=== PATIENT | male | born 1950 | race Caucasian/White ===

== ENCOUNTER 2019-11-05 09:26 | Outpatient (CLI) | payer MEDICARE, SELFPAY ==
[2019-11-05 10:05] LABS: Alanine Aminotransferase 16 U/L (4-50); Albumin Level 4.5 g/dL (3.5-5.1); Alkaline Phosphatase 63 U/L (38-126); Aspartate Amino Transferase 23 U/L (17-59); Bilirubin,Total 0.8 mg/dL (0.2-1.3); Blood Urea Nitrogen 15 mg/dL (9-20); Calcium 9.4 mg/dL (8.4-10.2); Carbon Dioxide 27 mmol/L (22-30); Chloride 103 mmol/L (98-107); Cholesterol 138 mg/dL (0-200); Estimated Glomerular Filt Rate > 60; Glucose 88 mg/dL (75-110); HDL Direct 26 mg/dL; Potassium 4.2 mmol/L (3.4-5.0); Sodium 139 mmol/L (137-145); Triglycerides 189 mg/dL (<150)
[2019-11-05 10:28] LABS: LDL Cholesterol Direct 80 mg/dL
[2019-11-05 10:48] LABS: Prostate Specific Antigen 3.5 ng/mL (< OR = 4.0)
== END 2019-11-05 09:27 | disposition home or self-care (01) ==
DX: I10 Essential (primary) hypertension (principal); Z12.5 Encounter for screening for malignant neoplasm of prostate
CPT/HCPCS: 36415; 80053; 80061; 84153; G0103

== ENCOUNTER 2020-08-30 13:02 | Emergency (ER) | payer MEDICARE, SELFPAY ==
[2020-08-30 13:24] VITALS: BP 142/74; PULSE 78; RESP 20; TEMP 36.3; O2SAT 98
--- NOTE | 2020-08-30 13:41 | ED.GENADULT ---
HPI - General Adult General Chief complaint: Upper Respiratory Infection Stated complaint: jaw and throat hurts Source: patient Mode of arrival: ambulatory Limitations: no limitations History of Present Illness HPI narrative: Patient presents for evaluation of pain in the left lateral neck and left TM joint since 0300 yesterday morning. States he woke from sleep with his symptoms. He attributed to laying on his face while sleeping and/or grinding his teeth. He states that he has some intermittent dental pain that has been ongoing for months related to a capped tooth. However, he does not have dental pain at the present time. He has also experienced some sinus problems and feels as though he has middle ear fluid present. Denies any fever, chills, respiratory symptoms, drainage from the ears, tinnitus or hearing loss. He states that he had Covid back in May 2020. He received his first Covid vaccine approximately three weeks ago and is scheduled to have his 2nd vaccine tomorrow. He came in for evaluation today to ensure that there was no contraindication to receiving his 2nd vaccine. He does not smoke. He states his symptoms today are improved from yesterday. No additional complaints or concerns. Related Data Home Medications Medication Instructions Recorded Confirmed losartan 25 mg DAILY 08/30/20 08/30/20 omeprazole 40 mg DAILY 08/30/20 08/30/20 Allergies Allergy/AdvReac Type Severity Reaction Status Date / Time No Known Allergies Allergy Verified 08/30/20 13:44 Review of Systems Review of Systems: Narrative: CONSTITUTIONAL: Denies fever, chills, or sweats. EYES: Denies visual changes, redness, or discharge. ENT: Reports pain in the left TM joint and left lateral neck without sore throat, tinnitus or hearing loss. CARDIOVASCULAR: Denies chest pain, palpitations, or edema. RESPIRATORY: Denies cough or dyspnea. GASTROINTESTINAL: Denies abdominal pain, nausea, vomiting, or diarrhea. GENITOURINARY: Denies dysuria or hematuria. SKIN: Denies rash or itching. MUSCULOSKELETAL: Denies back pain, joint pain, or myalgia. NEUROLOGIC: Denies headache, numbness, dizziness, or weakness. PSYCHIATRIC: Denies anxiety or depression. [facility] Past Medical History Medical History (Updated 08/30/20 @ 13:50 by Taj Victor, DATA LEAD, ) GERD (gastroesophageal reflux disease) Hypertension Ulcerative colitis Surgical History Surgical History H/O colectomy Family History Family History Father Lupus Mother Heart disease Social History Social History Smoking status: Never smoker Alcohol intake: current Alcohol use details: Socially Living arrangements: with family Gender identity (if verbalized by the patient): Male Sexual Orientation (if Verbalized by the Patient): Straight or Heterosexual Spiritual care concerns: No Exam Narrative: Exam Narrative: GENERAL: Well-appearing, well-nourished, and in no acute distress. HEAD: Normocephalic, atraumatic. EYES: PERRLA and EOMI. ENT: Nares clear, no rhinorrhea or epistaxis. Mucous membranes moist. Oropharynx without tonsillar hypertrophy exudate or other lesions. Bilateral middle ear fluid present NECK: Supple. Mild left-sided anterior cervical lymphadenopathy CHEST: Clear to auscultation. No respiratory distress. No wheezes rales or rhonchi HEART: Regular rate and rhythm. No murmur heard. Normal peripheral pulses. ABDOMEN: Soft, nontender, nondistended, normal active bowel sounds. EXTREMITIES: Normal range of motion. No edema. SKIN: Warm, dry, no rash. NEURO: No focal deficits. Alert and oriented x3. PSYCH: Normal mood and affect. Course Course Emergency Course: This is a 7-year-old male who presents with less than 48-hour history of left-sided TM joint pain as well as some
== END 2020-08-30 13:52 | disposition home or self-care (01) ==
PROVIDERS: Emergency Provider Nurse Practitioner; PCP Internal Medicine
DX: R59.1 Generalized enlarged lymph nodes (principal); I10 Essential (primary) hypertension; K21.9 Gastro-esophageal reflux disease without esophagitis
CPT/HCPCS: 87081; 87880; 99213; G0463

== ENCOUNTER 2020-11-06 08:48 | Outpatient (CLI) | payer MEDICARE, SELFPAY ==
[2020-11-06 09:26] LABS: Alanine Aminotransferase 21 U/L (4-50); Albumin Level 4.7 g/dL (3.5-5.1); Alkaline Phosphatase 60 U/L (38-126); Anion Gap 4 mmol/L (8-16); Aspartate Amino Transferase 28 U/L (17-59); Bilirubin,Total 0.9 mg/dL (0.2-1.3); Blood Urea Nitrogen 15 mg/dL (9-20); Calcium 9.7 mg/dL (8.4-10.2); Carbon Dioxide 30 mmol/L (22-30); Chloride 104 mmol/L (98-107); Cholesterol 145 mg/dL (0-200); Estimated Glomerular Filt Rate > 60; Glucose 92 mg/dL (75-110); HDL Direct 30 mg/dL; Potassium 4.5 mmol/L (3.4-5.0); Sodium 138 mmol/L (137-145); Triglycerides 168 mg/dL (<150)
[2020-11-06 09:36] LABS: LDL Cholesterol Direct 82 mg/dL
[2020-11-06 10:18] LABS: Prostate Specific Antigen 1.7 ng/mL (< OR = 4.0)
== END 2020-11-06 08:49 | disposition home or self-care (01) ==
PROVIDERS: PCP Internal Medicine; Visit Provider Internal Medicine
DX: I10 Essential (primary) hypertension (principal); Z12.5 Encounter for screening for malignant neoplasm of prostate
CPT/HCPCS: 36415; 80053; 80061; 84153; G0103

== ENCOUNTER 2021-11-24 06:33 | Outpatient (CLI) | payer MEDICARE, SELFPAY ==
[2021-11-24 08:07] LABS: Alanine Aminotransferase 24 U/L (6-50); Albumin Level 4.5 g/dL (3.5-5.1); Alkaline Phosphatase 63 U/L (38-126); Anion Gap 4 mmol/L (8-16); Aspartate Amino Transferase 26 U/L (17-59); Bilirubin,Total 0.9 mg/dL (0.2-1.3); Blood Urea Nitrogen 15 mg/dL (9-20); Calcium 9.2 mg/dL (8.4-10.2); Carbon Dioxide 32 mmol/L (22-30); Chloride 100 mmol/L (98-107); Cholesterol 136 mg/dL (0-200); Estimated Glomerular Filt Rate > 60; Glucose 89 mg/dL (65-110); HDL Direct 26 mg/dL; Potassium 4.5 mmol/L (3.4-5.0); Sodium 136 mmol/L (137-145); Triglycerides 174 mg/dL (<150)
[2021-11-24 08:19] LABS: LDL Cholesterol Direct 74 mg/dL
[2021-11-24 08:32] LABS: Prostate Specific Antigen 1.7 ng/mL (< OR = 4.0)
== END 2021-11-24 06:34 | disposition home or self-care (01) ==
LOC: ANHLAB 06:37
PROVIDERS: PCP Internal Medicine; Visit Provider Internal Medicine
DX: I10 Essential (primary) hypertension (principal); Z12.5 Encounter for screening for malignant neoplasm of prostate
CPT/HCPCS: 36415; 80053; 80061; 84153; G0103

== ENCOUNTER 2022-02-15 07:01 | Outpatient (CLI) | payer MEDICARE, SELFPAY | END 2022-02-15 07:02 | disposition home or self-care (01) | LOC: ANHLAB 07:05 | PROVIDERS: PCP Internal Medicine; Visit Provider Internal Medicine | DX: M79.10 Myalgia, unspecified site (principal); K90.89 Other intestinal malabsorption | CPT/HCPCS: 36415; 82306; 82607; 83735 ==

== ENCOUNTER 2024-06-07 07:03 | Outpatient (CLI) | payer MEDICARE, SELFPAY ==
[2024-06-07 07:58] LABS: Basophils Absolute Auto 0.1 K/mm3 (0.0-0.1); Eosinophils Percent Auto 0.5 % (0-4.4); Hematocrit 46.1 % (42.0-52.0); Hemoglobin 15.1 g/dL (14.0-18.0); Immature Granulocyte Absolute 0.03 K/mm3 (0.00-0.031); Immature Granulocyte Percent A 0.5 % (0-0.5); Lymphocytes Absolute Auto 1.88 K/mm3 (0.9-3.2); Lymphocytes Percent Auto 31.6 % (18.3-44.2); Mean Corpuscular HGB Conc 32.8 g/dl (32-36); Mean Corpuscular Hemoglobin 31.1 pg (26-34); Mean Corpuscular Volume 94.9 fl (80-100); Mean Platelet Volume 9.1 fl (7.4-10.4); Monocytes Absolute Auto 0.6 K/mm3 (0.1-0.6); Monocytes Percent Auto 10.6 % (2.6-8.5); Neutrophils Absolute Auto 3.3 K/mm3 (1.3-6.7); Neutrophils Percent Auto 55.8 % (45.5-73.1); Platelet Count Result 234 k/mm3 (150-375); Red Blood Count 4.86 M/mm3 (4.6-6.20); Red Cell Distribution Width 12.5 % (11.5-14.5)
[2024-06-07 08:07] LABS: Alanine Aminotransferase 31 U/L (6-50); Albumin Level 4.4 g/dL (3.5-5.1); Alkaline Phosphatase 59 U/L (38-126); Anion Gap 8 mmol/L (4-12); Aspartate Amino Transferase 28 U/L (17-59); Bilirubin,Total 1.1 mg/dL (0.2-1.3); Blood Urea Nitrogen 19 mg/dL (9-20); Calcium 9.4 mg/dL (8.4-10.2); Carbon Dioxide 28 mmol/L (22-30); Chloride 103 mmol/L (98-107); Estimated Glomerular Filt Rate > 60; Glucose 95 mg/dL (65-110); Potassium 4.3 mmol/L (3.4-5.0); Sodium 139 mmol/L (137-145)
== END 2024-06-07 07:04 | disposition home or self-care (01) ==
PROVIDERS: PCP Internal Medicine; Visit Provider Internal Medicine
DX: R79.9 Abnormal finding of blood chemistry, unspecified (principal)
CPT/HCPCS: 36415; 80053; 85025

== ENCOUNTER 2024-09-09 11:47 | Outpatient (CLI) | payer MEDICARE, SELFPAY ==
--- OUTSIDE RECORDS SUMMARY | 2024-09-09 13:52 | XMS_ITS | Patient Health Summary ---
Author Organization [facility] [employer] Address [address] [place] [address] Care Team Providers Care Manager Bakery Name Role Phone Unavailable Primary Care Provider Unavailabl e Note from [facility],non-owned Affiliates and Associated Physician Practices is amultiple site organization consisting of ambulatory clinics and hospital sitesin [place], [place], [place] and [place]. This disclosure is being madepursuant to the Care Everywhere program and may not contain all information available regarding this patient. Last updated 18.[facility] Allergies No known active allergies Medications * Be aware that medications may not be up to date on this document. Alwaysverify current medications with the patient. * Multiple Vitamins-Minerals (VITRUM SENIOR) TABS Take 1 tablet by mouth once daily * vitamin D3 (CHOLECALCIFEROL) (25 MCG) 1000 UNIT capsule Take 1,000 Units by mouth once daily * Cyanocobalamin 1000 MCG Take 100 mcg by mouth once daily * Famotidine-Ca Carb-Mag Hydrox 10-800-165 MG Take 1 tablet by mouth once daily * losartan (COZAAR) 25 MG tablet(Started 11/02/2020) Take 25 mg by mouth 2 times daily * omeprazole (PRILOSEC) 40 MG capsule(Started 08/18/2021) Take 40 mg by mouth 2 times daily * RABEprazole EC (ACIPHEX) 20 MG tablet(Started 09/15/2021) Take 20 mg by mouth 2 times daily Social History Tobacco Use Types Packs/Day Years Used Date Smoking Tobacco: Never Smokeless Tobacco: Never Alcohol Use Standard Drinks/Week Comments Not Currently 2 (1 standard drink = 0.6 oz pur e alcohol) Sex and Gender Information Value Date Recorded Sex Assigned at Not on file Gender Identity Not on file Sexual Orientation Not on file Last Filed Vital Signs Vital Sign Reading Time Taken Comments Blood Pressure - - Pulse - - Temperature - - Respiratory Rate - - Oxygen Saturation - - Inhaled Oxygen Concentration - - Weight 72.6 kg (160 lb) 10/04/2021 8:03 AM CDT Height 168.9 cm (5' 6.5 ) 10/04/2021 8:03 AM CDT Body Mass Index 25.44 10/04/2021 8:03 AM CDT Procedures * DERMATOPATHOLOGY(Performed 04/20/2022) Performed for Neoplasm of uncertain behavior of skin * ESOPHAGUS/GASTROESOPHAGEAL REFLUX TEST(Performed 10/04/2021) Performed for Gastroesophageal reflux disease, unspecified whether esophagitis present * GASTRIC MOTILITY STUDY(Performed 10/04/2021) Performed for Gastroesophageal reflux disease, unspecified whether esophagitis present * DERMATOPATHOLOGY(Performed 08/02/2017) Results * DERMATOPATHOLOGY (04/20/2022 12:00 AM CDT) Only the most recent of2 resultswithin the time period is included. Case Report Dermatopathology Report Case: [id number] Authorizing Provider: Ai Phelan, Collected: 04/20/2022 12:00 AM PRODUCT MARKETING CONSULTANT-BASEBALL PLAYER Ordering Location: [facility] DermPath Lab Received: 04/21/2022 02:01 PM Pathologist: Riri Ozuna MD Specimen: Skin, left lateral neck 2 4:25 PM CDT DERMATOPATHOLOGY LABORATORY Final Diagnosis Specimen A. SKIN, left lateral neck: HYPERPLASTIC (HYPERTROPHIC) ACTINIC KERATOSIS, ERODED (L57.0) 2 4:25 PM CDT DERMATOPATHOLOGY LABORATORY Clinical History Actinic Keratosis vs. Squamous Cell Carcinoma 2 4:25 PM CDT DERMATOPATHOLOGY LABORATORY Gross Description Specimen A: Received is one formalin filled container labeled with the patient's name and designated left lateral neck. The specimen consists of a shave biopsy measuring [id number]. Jar 0. 2 4:25 PM CDT DERMATOPATHOLOGY LABORATORY Microscopic Description Specimen A. SKIN, left lateral neck: There is hyperkeratosis alternating with parakeratosis. The epidermis is focally eroded. There is epidermal hyperplasia with disorderly maturation of keratinocytes with nuclear pleomorphism confined to the lower half of the epidermis. 2 4:25 PM CDT DERMATOPATHOLOGY LABORATORY Disclaimer An external and internal positive and negative controls are appropriate for the histochemical, immunohistochemical and immunofluorescence stain(s) in this case (if any), except where stated explicitly. The performance characteristics of the stain(s) cited in this report were developed and its performance characteristic determined by the Dermatopathology Laboratory at [facility], directed by Dr. Waldemar Garner. These tests need not be, and therefore are not, approved by the [place] Food and Drug Administration. The tests are used for clinical purposes. Billing Codes Specimen Charges Stain Charges 60398 1 2 4:25 PM CDT DERMATOPATHOLOGY LABORATORY Embedded Images 2 4:25 PM CDT DERMATOPATHOLOGY LABORATORY Pathology/Cytolog y TISSUE SPECIMEN FROM SKIN / Unknown 04/20/2022 04/21/2022 2:01 PM CDT Ai Camargo APRN-BASEBALL PLAYER LAB - PATH OLOGY/CYTOLOGY ORDERABLES DERMATOPATHOLOGY LABORATORY [facility] - Department of Dermatology [address], [address] [phone]
--- OUTSIDE RECORDS SUMMARY | 2024-09-09 13:52 | XMS_ITS | Encounter Summary ---
Author Organization [facility] Address 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 HISTORY: HISTORY: 401.1-HYPERTENSION ESSENTIAL BENIGN The patient denies chest pain, shortness of breath, dyspnea on exertion, pedal edema, or headache. The blood pressure readings taken outside the office since the last visit have been in the target range. 556.9-ULCERATIVE COLITIS stable PHYSICAL EXAMINATION: CONSTITUTIONAL: GENERAL APPEARANCE: Healthy appearing patient in no distress. NECK/THYROID: Trachea midline. No thyroid enlargement, tenderness, or mass. No supraclavicular or cervical adenopathy. RESPIRATORY: Clear to auscultation and percussion. Normal respiratory effort. CARDIOVASCULAR: CARDIAC: Regular rhythm. No murmurs, rubs, or gallops. ARTERIAL: No aortic bruits. EDEMA/VARICOSITIES OF EXTREMITIES: No edema or varicosities. GASTROINTESTINAL: ABDOMEN: Soft, non-tender, without masses. Bowel sounds active. LIVER/SPLEEN/KIDNEY: No hepatosplenomegaly, tenderness or nodularity. Kidneys not palpable. ASSESSMENT/PLAN: 272.4-HYPERLIPIDEMIA trig discussed diet and ex 401.1-HYPERTENSION ESSENTIAL BENIGN cont med, pt will cont home monitor 556.9-ULCERATIVE COLITIS stable, discussed REPEAT VITAL SIGNS: BLOOD PRESSURE: 140/70. Right Arm Sitting PREVENTIVE COUNSELING The patient was counseled regarding diet, regular sustained exercise for at least 30 minutes 3-4 times per week. RETURN VISIT : Patient instructed to return in 6 months. Electronically Signed by: Khang Foster MD on Monday, January 01, 2007 documented in this encounter Plan of Treatment Not on file documented as of this encounter Visit Diagnoses Not on filedocumented in this encounter Care Teams Medical Device Sales Consultant Relationship Specialty Start Date End Date Ish Gonzalez MD [address] [place] [address] PCP - General Internal Medicine 08/02/21 documented as of this encounter
--- OUTSIDE RECORDS SUMMARY | 2024-09-09 13:52 | XMS_ITS | Encounter Summary ---
Author Organization [facility] Address [address] [place] [address] Care Team Providers Care Environmental Services Associate Name Role Phone Ish Gonzalez MD Primary Care Provider [phone] Encounter Details Date Type Department Care Team (Late st Contact Info) Description 05/11/2006 Outpatient [facility] Internal Medicine [address] [address] Khang Foster MD [address] [place] [phone] Social History Tobacco Use Types Packs/Day Years Used Date Smoking Tobacco: Never Assessed Sex and Gender Information Value Date Recorded Sex Assigned at Not on file Legal Sex Male 4:36 AM DRY WALL SPRAYER Gender Identity Not on file Sexual Orientation Not on file documented as of this encounter Last Filed Vital Signs Vital Sign Reading Time Taken Comments Blood Pressure 120/70 05/11/2006 4:30 PM DRY WALL SPRAYER Pulse - - Temperature - - Respiratory Rate - - Oxygen Saturation - - Inhaled Oxygen Concentration - - Weight 70.3 kg (155 lb) 05/11/2006 4:30 PM DRY WALL SPRAYER Height - - Body Mass Index 22.89 08/31/2004 9:45 AM DRY WALL SPRAYER documented in this encounter Plan of Treatment Not on file documented as of this encounter Visit Diagnoses Not on filedocumented in this encounter Care Teams Environmental Services Associate Relationship Specialty Start Date End Date Ish Gonzalez MD [address] [place] [address] PCP - General Internal Medicine 08/02/21 documented as of this encounter
--- OUTSIDE RECORDS SUMMARY | 2024-09-09 13:52 | XMS_ITS | Encounter Summary ---
Author Organization [facility] Address 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 HISTORY: HISTORY: 272.4-HYPERLIPIDEMIA The patient is somewhat compliant with the low saturated fat diet. 401.1-HYPERTENSION ESSENTIAL BENIGN The blood pressure readings taken outside the office since the last visit are as follows: the systolic range has been 120's. The diastolic range has been 80's. pulse 80's 556.9-ULCERATIVE COLITIS stable PHYSICAL EXAMINATION: CONSTITUTIONAL: GENERAL [...] or nodularity. Kidneys not palpable. ASSESSMENT/PLAN: 272.4-HYPERLIPIDEMIA discussed, recheck 401.1-HYPERTENSION ESSENTIAL BENIGN contmed, enc exercise 556.9-ULCERATIVE COLITIS [facility] LAB ORDERS: 3 mo Order number: [id number] Test Ordered: COMPREHENSIVE METABOLIC PANEL W/ GLOMERULAR FILTRATION RATE, ESTIMATED (EGFR) 34577 Order number: [id number] Test Ordered: LIPID PANEL 7600 Order number: [id number] Test Ordered: VITAMIN B12 927 RETURN VISIT : Patient instructed to return in 3 months. Electronically Signed by: Khang Foster MD on Monday, September 04, 2006 documented in this encounter Plan of Treatment Not on file documented as of this encounter Visit Diagnoses Not on filedocumented in this encounter Care Teams Floor Layer Helper Relationship Specialty Start Date End Date Ish Gonzalez MD [address] [place] [address] PCP - General Internal Medicine 08/02/21 documented as of this encounter
--- OUTSIDE RECORDS SUMMARY | 2024-09-09 13:52 | XMS_ITS | Encounter Summary ---
Author Organization [facility] Address [address] [place] [address] Care Team Providers Care Learning And Development Analyst Name Role Phone Ish Gonzalez MD Primary Care Provider [phone] Encounter Details Date Type Department Care Team (Late st Contact Info) Description 07/16/2007 Orders Only [facility] Internal Medicine [address] [address] Khang Foster MD [address] [place] [phone] Social History Tobacco Use Types Packs/Day Years Used Date Smoking Tobacco: Never Assessed Sex and Gender Information Value Date Recorded Sex Assigned at Not on file Legal Sex Male 4:36 AM REGISTERED NURSE FLOAT POOL Gender Identity Not on file Sexual Orientation Not on file documented as of this encounter Progress Notes * Khang Foster MD - 11/14/2007 6:37 PM CDT WEIGHT: 166lbs BLOOD PRESSURE: 132/82 Right Arm Sitting NURSE NAME: Thierry Lewis N TOBACCO USE Patient does not currently use tobacco. CHIEF COMPLAINT Patient here for follow up hypertension, hyperlipidemia. HISTORY: kwan med bp fluctuates, tries to watch diet, lab reviewed SOCIAL HISTORY: TOBACCO USE: Has no significant smoking history. DISCUSSED SMOKING: neg. PHYSICAL EXAMINATION: CONSTITUTIONAL: GENERAL APPEARANCE: Healthy appearing [...] or nodularity. Kidneys not palpable. ASSESSMENT/PLAN: 272.4-HYPERLIPIDEMIA enc diet recheck lab 401.1-HYPERTENSION ESSENTIAL BENIGN con tmed LAB ORDERS: 6 mo Order number: [id number] Test Ordered: CBC W/ DIFFERENTIAL 3150 Order number: [id number] Test Ordered: COMPREHENSIVE METABOLIC PANEL & GFR 1112 Order number: [id number] Test Ordered: LIPID PANEL 1078 Order number: [id number] Test Ordered: PSA, TOTAL 1002 Order number: [id number] Test Ordered: TSH 1720 Order number: [id number] Test Ordered: VITAMIN B12 LEVEL 1719 556.9-ULCERATIVE COLITIS stable, recheck b 12 REPEAT VITAL SIGNS: BLOOD PRESSURE: 120/70. Right Arm Sitting Patient Education: The patient was allowed to ask questions to stated satisfaction. Risks, benefits, and possible side effects of medication(s) were reviewed with the patient. RETURN VISIT : Patient instructed to return in 6 months. Electronically Signed by: Khang Foster MD on Monday, July 16, 2007 documented in this encounter Plan of Treatment Not on file documented as of this encounter Visit Diagnoses Not on filedocumented in this encounter Care Teams Learning And Development Analyst Relationship Specialty Start Date End Date Ish Gonzalez MD [address] [place] [address] PCP - General Internal Medicine 08/02/21 documented as of this encounter
--- OUTSIDE RECORDS SUMMARY | 2024-09-09 13:52 | XMS_ITS | Encounter Summary ---
Author Organization [facility] Address [address] [place] [address] Care Team Providers Care Engine Designer Name Role Phone Ish Gonzalez MD Primary Care Provider [phone] Encounter Details Date Type Department Care Team (Late st Contact Info) Description 02/16/2006 Outpatient [facility] Internal Medicine [address] [address] Khang Foster MD [address] [place] [phone] Social History Tobacco Use Types Packs/Day Years Used Date Smoking Tobacco: Never Assessed Sex and Gender Information Value Date Recorded Sex Assigned at Not on file Legal Sex Male 4:36 AM PARKING ANALYST Gender Identity Not on file Sexual Orientation Not on file documented as of this encounter Last Filed Vital Signs Vital Sign Reading Time Taken Comments Blood Pressure 140/98 02/16/2006 4:30 PM CDT Pulse - - Temperature - - Respiratory Rate - - Oxygen Saturation - - Inhaled Oxygen Concentration - - Weight 72.1 kg (159 lb) 02/16/2006 4:30 PM CDT Height - - Body Mass Index 23.48 08/31/2004 9:45 AM PARKING ANALYST documented in this encounter Plan of Treatment Not on file documented as of this encounter Visit Diagnoses Not on filedocumented in this encounter Care Teams Engine Designer Relationship Specialty Start Date End Date Ish Gonzalez [place] [place] [phone] PCP - General Internal Medicine 08/02/21 documented as of this encounter
--- OUTSIDE RECORDS SUMMARY | 2024-09-09 13:52 | XMS_ITS | Encounter Summary ---
Author Organization [facility] Address [address] [place] [address] Care Team Providers Care Pi/Senior Research Associate Name Role Phone Ish Gonzalez MD Primary Care Provider [phone] Encounter Details Date Type Department Care Team (Late st Contact Info) Description 07/16/2007 Outpatient [facility] Internal Medicine [address] [address] Khang Foster MD [address] [place] [phone] Social History Tobacco Use Types Packs/Day Years Used Date Smoking Tobacco: Never Assessed Sex and Gender Information Value Date Recorded Sex Assigned at Not on file Legal Sex Male 4:36 AM APPLIED BEHAVIOR SCIENCE SPECIALIST Gender Identity Not on file Sexual Orientation Not on file documented as of this encounter Last Filed Vital Signs Vital Sign Reading Time Taken Comments Blood Pressure 120/70 07/16/2007 4:00 PM APPLIED BEHAVIOR SCIENCE SPECIALIST Pulse - - Temperature - - Respiratory Rate - - Oxygen Saturation - - Inhaled Oxygen Concentration - - Weight 75.3 kg (166 lb) 07/16/2007 4:00 PM APPLIED BEHAVIOR SCIENCE SPECIALIST Height - - Body Mass Index 24.51 08/31/2004 9:45 AM APPLIED BEHAVIOR SCIENCE SPECIALIST documented in this encounter Plan of Treatment Not on file documented as of this encounter Visit Diagnoses Not on filedocumented in this encounter Care Teams Pi/Senior Research Associate Relationship Specialty Start Date End Date Ish Gonzalez MD [address] [place] [address] PCP - General Internal Medicine 08/02/21 documented as of this encounter
--- OUTSIDE RECORDS SUMMARY | 2024-09-09 13:52 | XMS_ITS | Encounter Summary ---
Author Organization [facility] Address 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 Gender Identity Not on file Sexual Orientation Not on file documented as of this encounter Last Filed Vital Signs Vital Sign Reading Time Taken Comments Blood Pressure 140/70 01/01/2007 4:15 PM CDT Pulse - - Temperature - - Respiratory Rate - - Oxygen Saturation - - Inhaled Oxygen Concentration - - Weight 73.5 kg (162 lb) 01/01/2007 4:15 PM CDT Height - - Body Mass Index 23.92 08/31/2004 9:45 AM LOG MARKER documented in this encounter Plan of Treatment Not on file documented as of this encounter Visit Diagnoses Not on filedocumented in this encounter Care Teams Occupational Ther Relationship Specialty Start Date End Date Ish Gonzalez [place] [address] [place] [address] PCP - General Internal Medicine 08/02/21 documented as of this encounter
--- OUTSIDE RECORDS SUMMARY | 2024-09-09 13:52 | XMS_ITS | Clinical Summary ---
Author Organization [facility] Address [address] [place] [address] Phone Care Team Providers Care Histology Specialist Name Role Phone Ish Gonzalez MD Primary Care Provider [phone] Bob Ji MD Unavailable [phone] Ever Matias DO Unavailable [phone] Medications famotidine (PEPCID) 10 MG Tablet Take 10 mg by mouth. Active telmisartan (MICARDIS) 40 MG Tablet Take 1 Tablet by mouth daily. 90 Tablet 3 11/29/2023 Active omeprazole (PriLOSEC) 20 MG CAPSULE DELAYED RELEASE Take 20 mg by mouth in the morning and at bedtime. Active Multivitamin-Mi nerals (multiple vitamin with minerals) Tablet Take 1 Tablet by mouth daily. Active [place] 3 1200 MG Capsule Take by mouth. Active Active Problems Problem Noted Date Diagnosed Date Zuñiga's esophagus with dysplasia 11/18/2021 Essential hypertension, benign 11/02/2020 Incisional hernia, without obstruction or gangre ne 09/22/2016 H/O ulcerative colitis 02/05/2016 H/O total colectomy 02/05/2016 Gastroesophageal reflux disease 10/27/2015 Hiatal hernia 10/27/2015 Resolved Problems Problem Noted Date Diagnosed Date Resolved Date Non-recurrent bilateral ingu inal hernia without obstruction or gangrene 09/22/2016 11/19/19 22 Small bowel obstruction due to adhesions 02/02/2016 11/02/2020 Encounters Date Type Department Care Team Description 08/30/2024 Telephone [facility] - [place] [address] [place] [address] Ish Gonzalez MD 07/04/2024 Patient Outreach [facility] [address] [place] [address] Elicia Shore Care Management from Last 3 Months Immunizations Immunization Administration Dates Next Due Covid-19, Mrna, Lnp-s, Pf, 3 0 Mcg/0.3 Ml Dose (Pfizer) 04/06/2021 Covid-19, Mrna, Lnp-s, Pf, 3 0 Mcg/0.3 Ml Dose, Andrés-sucrose (Scivantage medley top) 10/18/2021 DTAP VACCINE 01/14/2016 Influenza Vaccine 05/09/2019 Influenza Vaccine greater than 3 yrs 04/07/2015 Influenza, High-dose, Quadrivalent 03/11/2021,,03/03/2020 Influenza, Injectable, Quadrivalent 1950 Influenza, Quadrivalent, Adjuvanted 04/26/2023,1 Influenza, Seasonal, Injecta ble, Undefined 04/16/2014,03/18/2013,05/01/2012,05/03,04/02/2010,05/03/2008,06/02/2003 Influenza, Trivalent, Adjuvanted, PF 03/06/2024, 04/17/2018,04/16/2018 Influenza, high-dose, trivalent, PF 09/0 07/2019,03/03/2020,05/09/2019,05/05 Pneumococcal Vaccine - 13 Valent 11/04/2015 Pneumococcal Vaccine Adult - 23 Valent Pneumococcal conjugate PCV20 , polysaccharide [id number] conjugate, adjuvant, PF 11/29/2023 RSV, Recombinant, Protein Santana bunit Rsvpref, Adjuvant Recon (Arexvy) 05/11/2023 TD VACCINE 02/01/2000 TDAP Vaccine 01/14/2016,05/07/2012 Tetanus Vaccine 02/01/2000 Zoster Vaccine Recombinant 02/05/2019,11/08/2018 ,11/01/2018 Zoster Vaccine, live 01/17/2014,12/31/2013 Family History Medical History Relation Name Comments Lupus Father Rheumatoid Arthritis Father Cancer Mother skin Heart Disease Mother Hypertension Mother Heart Disease Sister Hypertension Sister Relation Name Status Comments Father Mother Sister Alive Social History Tobacco Use Types Packs/Day Years Used Date Smoking Tobacco: Never Passive Smoke Exposure: Never Smokeless Tobacco: Never Tobacco Cessation:Counseling Given: Not Answered Alcohol Use Standard Drinks/Week Comments Yes 0 (1 standard drink = 0.6 oz pur e alcohol) occasional C Utilities Answer Date Recorded In the past 12 months has th e electric, gas, oil, or water company threatened to shut off services in your home? No 03/06/2024 Social Connection and Isolation Panel [NHANES] A nswer Date Recorded In a typical week, how many times do you talk on the phone with family, friends, or neighbors? Twice a week 03/06/2024 How often do you get together with friends or re latives? Twice a week 03/06/2024 How often do you attend episcopalian or congregational serv ices? Never 03/06/2024 Do you belong to any clubs o r organizations such as episcopalian groups, unions, fraternal or athletic groups, or school groups? No 03/06/2024 How often do you attend meet ings of the clubs or organizations you belong to? Never 03/06/2024 Are you , , di vorced, , never , or living with a partner? 03/06/2024 AUDIT-C Answer Date Recorded Q1: How often do you have a drink containing alc ohol? 2-4 times a month 03/06/2024 Q2: How many drinks containi ng alcohol do you have on a typical day when you are drinking? 1 or 2 03/06/2024 Q3: How often do you have si x or more drinks on one occasion? Never 03/06/2024 Overall Financial Resource Strain (CARDIA) Answe r Date Recorded How hard is it for you to pa y for the very basics like food, housing, medical care, and heating? Not hard at all 03/06/2024 PHQ-2 Answer Date Recorded Total Score - Questions 1-9 0 05/2 03/2024 [facility] - Occupational Stress Questionnaire Answer Date Recorded Do you feel stress - tense, restless, nervous, or anxious, or unable to sleep at night because your mind is troubled all the time - these days? Only a little 03/06/2024 Exercise Vital Sign Answer Date Recorde d On average, how many days pe r week do you engage in moderate to strenuous exercise (like a brisk walk)? 3 days 03/06/2024 On average, how many minutes do you engage in exercise at this level? 40 min 03/06/2024 Hunger Vital Sign Answer Date Recorded Within the past 12 months, y ou worried that your food would run out before you got the money to buy more. Never true 03/06/20 24 Within the past 12 months, t he food you bought just didn't last and you didn't have money to get more. Never true 03/06/2024 PRAPARE - Transportation Answer Date Re corded In the past 12 months, has l ack of transportation kept you from medical appointments or from getting medications? No 10/2023 In the past 12 months, has l ack of transportation kept you from meetings, work, or from getting things needed for daily living? No 03/06/2024 Housing Stability Vital Sign Answer Reg e Recorded In the last 12 months, was t here a time when you were not able to pay the mortgage or rent on time? No 11/29/2023 Number of Places Lived in the Last Year Not on f ile 11/29/2023 Unstable Housing in the Last Year Not on file 11/29/2023 Education Answer Date Recorded What is the highest level of school you have completed or the highest degree you have received? 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 Not on file Not on file Not on file Last Filed Vital Signs Vital Sign Reading Time Taken Comments Blood Pressure 118/62 03/06/2024 8:31 AM CDT Pulse 67 03/06/2024 8:31 AM CDT Temperature 36.5 C (97.7 F) 03/06/2024 8:31 AM CDT Respiratory Rate 12 03/06/2024 8:31 AM CDT Oxygen Saturation 95% 03/06/2024 8:31 AM CDT Inhaled Oxygen Concentration - - Weight 77 kg (169 lb 12.8 oz) 03/06/2024 8:31 AM CDT Height 170.2 cm (5' 7 ) 03/06/2024 8:31 AM CDT Body Mass Index 26.59 03/06/2024 8:31 AM CDT Plan of Treatment Upcoming Encounters Date Type Department Care Team (Late st Contact Info) Description 12/04/2024 8:30 AM CDT Office Visit [facility] [address] [place] [address] Ish Gonzalez MD [address] [place] [address] Health Maintenance Due Date Last Done Comments Hepatitis C Virus (HCV) Screening 1950 Colonoscopy 1995 Cologuard 2000 Immunochemical Fecal Occult Blood 2000 SARS-COV-2 Immunization ( season) 2024 03/22/2023, 04/18/2022, 10/18/2021, Additional history exists DTaP/Tdap/Td Immunization Discontinued 2015, 01/14/2016, 05/07/2012, Additional history exists Zoster Immunization Completed 02/05/2019, 11/08/2018, 11/01/2018, Additional history exists Respiratory Syncytial Virus (RSV) Immunization (Adult) Completed 05/11/2023 PSA Discussion Discontinued 11/29/2023, 11/01, 11/24/2021, Additional history exists Pneumococcal Immunization (50+ years) Completed 11/29/2023, 11/02/2020, 05/17/2016, Additional history exists Pneumococcal Immunization Combined Discontinued 11/29/2023, 11/02/2020, 05/17/2016, Additional history exists Influenza Immunization Completed 4, 04/26/2023, 04/06/2022, Additional history exists Colorectal Cancer Screening Discontinued Hepatitis B Immunization Aged Out No longer eligible based on patient's age to complete this topic Meningococcal Immunization (ACWY) Aged Out No longer eligible based on patient's age to complete this topic Rotavirus Immunization Aged Out No lo nger eligible based on patient's age to complete this topic Procedures Procedure Name Priority Date/Time Associated Diagnosis Comments PSA SCREEN Routine 11/29/2023 9:58 AM CDT Screening for prostate cancer from Last 3 Months or Most Recently Relevant to Health Maintenance Results * PSA SCREEN (11/29/2023 9:58 AM CDT) PSA SCREEN, TOTAL 1.90 <4.00 ng/mL 11/29/2023 12:[address] [facility] Blood Venipuncture / Unknown 11/29/2023 9:58 AM CDT 11/29/2023 11:19 AM CDT [address] [facility] - 11/29/2023 12:10 PM CDT The ALINITY Total PSA assay is a Chemiluminescent Microparticle Immunoassay (CMIA) for the quantitative determination of total PSA (both free PSA and PSA complexed to [id number]) in human serum. Total PSA values obtained with different assay methods, including Turpin PSA assays, cannot be used interchangeably. Ish Gonzalez MD CHEMISTRY ORDERABLES Final Result [facility] [address] [place] [address] from Last 3 Months or Most Recently Relevant to Health Maintenance Insurance MEDICARE COMMERCIAL GENERIC Advance Directives * Full Code (Latest Code Status on File) Date Activated Date Inactivated Comments 02/01/2016 2:23 PM 02/07/2016 5:25 PM CPR-Full Treat ment: FULL ARREST: Attempt Resuscitation/CPR wit intubation and mechanical ventilation. PRE-ARREST: Use entire range of life support measures to stabilize the patient. Care Teams Histology Specialist Relationship Specialty Start Date End Date Ish Gonzalez MD [address] [place] [address] PCP - General Internal Medicine 10/08/15 Bob Ji MD [address] [place] [address] General Surgery 02/09/16 Ever Matias DO [address] [place] [address] Gastroenterology 02/10/16
--- OUTSIDE RECORDS SUMMARY | 2024-09-09 13:52 | XMS_ITS | Encounter Summary ---
Author Organization [facility] Address [address] [place] [address] Care Team Providers Care Clinic Supervisor Name Role Phone Ish Gonzalez MD Primary Care Provider [phone] Encounter Details Date Type Department Care Team (Late st Contact Info) Description 11/17/2005 Outpatient [facility] Internal Medicine [address] [address] Khang Foster MD [address] [place] [phone] Social History Tobacco Use Types Packs/Day Years Used Date Smoking Tobacco: Never Assessed Sex and Gender Information Value Date Recorded Sex Assigned at Not on file Legal Sex Male 4:36 AM LABOR MEDIATOR Gender Identity Not on file Sexual Orientation Not on file documented as of this encounter Last Filed Vital Signs Vital Sign Reading Time Taken Comments Blood Pressure 140/92 11/17/2005 4:30 PM CDT Pulse - - Temperature - - Respiratory Rate - - Oxygen Saturation - - Inhaled Oxygen Concentration - - Weight 71.2 kg (157 lb) 11/17/2005 4:30 PM CDT Height - - Body Mass Index 23.18 08/31/2004 9:45 AM LABOR MEDIATOR documented in this encounter Plan of Treatment Not on file documented as of this encounter Visit Diagnoses Not on filedocumented in this encounter Care Teams Clinic Supervisor Relationship Specialty Start Date End Date Ish Gonzalez [place] [place] [address] PCP - General Internal Medicine 08/02/21 documented as of this encounter
--- OUTSIDE RECORDS SUMMARY | 2024-09-09 13:52 | XMS_ITS | Encounter Summary ---
Author Organization [facility] Address [address] [place] [address] Care Team Providers Care Financial Dealers Name Role Phone Ish Gonzalez MD Primary Care Provider [phone] Encounter Details Date Type Department Care Team (Latest Contact Info) Description 01/05/2008 Outpatient Historical [facility] Khang Foster MD [address] [place] [phone] Other and Unspecified Hyperlipidemia Social History Tobacco Use Types Packs/Day Years Used Date Smoking Tobacco: Never Alcohol Use Standard Drinks/Week Comments Yes 0 (1 standard drink = 0.6 oz pur e alcohol) Sex and Gender Information Value Date Recorded Sex Assigned at Not on file Legal Sex Male 4:36 AM HOLE DIGGER Gender Identity Not on file Sexual Orientation Not on file documented as of this encounter Plan of Treatment Not on file documented as of this encounter Visit Diagnoses Diagnosis Other and unspecified hyperlipidemia documented in this encounter Care Teams Financial Dealers Relationship Specialty Start Date End Date Ish Gonzalez MD [address] [place] [id number] PCP - General Internal Medicine 08/02/21 documented as of this encounter
--- OUTSIDE RECORDS SUMMARY | 2024-09-09 13:52 | XMS_ITS | Referral Summary ---
Author Organization [facility] Address [address] [place] [address] Care Team Providers Care Stock Pitcher Name Role Phone Unavailable Primary Care Provider Unavailabl e Source Comments [facility],non-owned Affiliates and Associated Physician Practices is amultiple site organization consisting of ambulatory clinics and hospital sitesin [place], [place], [place] and [place]. This disclosure is being madepursuant to the Care Everywhere program and may not contain all information available regarding this patient. Last updated 18.[facility] Allergies No known active allergies Medications * Be aware that medications may not be up to date on this document. Alwaysverify current medications with the patient. Medication Sig Dispensed Refills Start Date End Date Status Multiple Vitamins-Minerals (VITRUM SENIOR) TABS Take 1 tablet by mouth once daily Active vitamin D3 (CHOLECALCIFEROL) (25 MCG) 1000 UNIT capsule Take 1,000 Units by mouth once daily Active Cyanocobalamin 1000 MCG Take 100 mcg by mouth once daily Active Famotidine-Ca Carb-Mag Hydrox 10-800-165 MG Take 1 tablet by mouth once daily Active losartan (COZAAR) 25 MG tablet Take 25 mg by mouth 2 times daily 11/02/2020 Active omeprazole (PRILOSEC) 40 MG capsule Take 40 mg by mouth 2 times daily 08/18/2021 Active RABEprazole EC (ACIPHEX) 20 MG tablet Take 20 mg by mouth 2 times daily 09/15/2021 Active Social History Tobacco Use Types Packs/Day Years [...] Mass Index 25.44 10/04/2021 8:03 AM CDT Plan of Treatment Not on file
--- OUTSIDE RECORDS SUMMARY | 2024-09-09 13:52 | XMS_ITS | Encounter Summary ---
Author Organization [facility] Address [address] [place] [address] Care Team Providers Care Amphibious Operations Officer Name Role Phone Ish Gonzalez MD Primary Care Provider [phone] Encounter Details Date Type Department Care Team (Late st Contact Info) Description 09/04/2006 Outpatient [facility] Internal Medicine [address] [place] [address] [address] Khang Foster MD [address] [place] [phone] Social History Tobacco Use Types Packs/Day Years Used Date Smoking Tobacco: Never Assessed Sex and Gender Information Value Date Recorded Sex Assigned at Not on file Legal Sex Male 4:36 AM EVP GLOBAL PRODUCT LEADERSHIP Gender Identity Not on file Sexual Orientation Not on file documented as of this encounter Last Filed Vital Signs Vital Sign Reading Time Taken Comments Blood Pressure 130/84 09/04/2006 4:00 PM EVP [employer] PRODUCT LEADERSHIP Pulse - - Temperature - - Respiratory Rate - - Oxygen Saturation - - Inhaled Oxygen Concentration - - Weight 73 kg (161 lb) 09/04/2006 4:00 PM EVP [employer] PR[employer] LEADERSHIP Height - - Body Mass Index 23.78 08/31/2004 9:45 AM EVP GLOBAL PRODUCT LEADERSHIP documented in this encounter Plan of Treatment Not on file documented as of this encounter Visit Diagnoses Not on filedocumented in this encounter Care Teams Amphibious Operations Officer Relationship Specialty Start Date End Date Ish [place] [address] PCP - General Internal Medicine 08/02/21 documented as of this encounter
--- OUTSIDE RECORDS SUMMARY | 2024-09-09 13:53 | XMS_ITS | Clinical Summary ---
Author Organization [facility] Address [address] [place] [address] Care Team Providers Care Braddisher Name Role Phone Ish Gonzalez MD Primary Care Provider [phone] Allergies No known active allergies Medications telmisartan (MICARDIS) 40 MG tablet Take 1 tablet (40 mg total) by mouth daily. Active famotidine-calc ium carbonate-magne sium hydroxide (PEPCID COMPLETE) 10-800-165 MG Chew Tab Chew 1 tablet by mouth daily as needed. Active Multiple Vitamins-Minera ls (CENTRUM SILVER 50+MEN OR) Take 1 chewable tablet by mouth daily. Active fish oil (OMEGA-3 FATTY ACID) 1200 MG Cap capsule Take by mouth. Act yulia cefdinir (OMNICEF) 300 MG Cap capsule Take 1 capsule (300 mg total) by mouth 2 (two) times daily as needed (for infection In pouch lining). Active omeprazole (PRILOSEC) 20 MG capsuleIndicati ons:Zuñiga's esophagus with low grade dysplasia Take 1 capsule (20 mg total) by mouth 2 (two) times a day. 180 capsule 3 4 Active Active Problems Problem Noted Date Diagnosed Date Zuñiga's esophagus with low grade dysplasia Overview (04/20/2023): Added automatically from request for surgery Ulcerative colitis with comp lication, unspecified location ([facility]) 04/20/2023 Overview (04/20/2023): Added automatically from request for surgery Nuclear age-related cataract, left eye 9 Family History Medical History Relation Comments Lupus Father Heart Disease Mother Relation Status Comments Father Mother Social History Tobacco Use Types Packs/Day Years Used Date Smoking Tobacco: Never Smokeless Tobacco: Never Tobacco Cessation:Counseling Given: Not Answered Alcohol Use Standard Drinks/Week Comments Yes 0 (1 standard drink = 0.6 oz pur e alcohol) occasional PHQ-2 Answer Date Recorded Patient Health Questionnaire-2 Score 0 04/19/2023 Sex and Gender Information Value Date Recorded Sex Assigned at Not on file Legal Sex Male 3:38 PM CDT Gender Identity Male 07/05/2021 5:23 PM HEALTH INFORMATION INTERNSHIP Sexual Orientation Straight 07/05/2021 5: 23 PM HEALTH INFORMATION INTERNSHIP Last Filed Vital Signs Vital Sign Reading Time Taken Comments Blood Pressure 139/66 05/08/2024 8:30 AM HEALTH INFORMATION INTERNSHIP Pulse 77 05/08/2024 7:10 AM HEALTH INFORMATION INTERNSHIP Temperature 35.9 C (96.7 F) 05/08/2024 8:30 AM HEALTH INFORMATION INTERNSHIP Respiratory Rate 18 05/08/2024 8:30 AM HEALTH INFORMATION INTERNSHIP Oxygen Saturation 99% 05/08/2024 8:30 AM HEALTH INFORMATION INTERNSHIP Inhaled Oxygen Concentration - - Weight 74.8 kg (165 lb) 05/08/2024 7:10 AM HEALTH INFORMATION INTERNSHIP Height 170.2 cm (5' 7 ) 05/08/2024 7:10 AM HEALTH INFORMATION INTERNSHIP Body Mass Index 25.84 05/08/2024 7:10 AM HEALTH INFORMATION INTERNSHIP Plan of Treatment Upcoming Encounters Date Type Department Care Team (Latest Contact Info) Description 01/30/2025 8:00 AM CDT Hospital Encounter [place] [address] Radha Etienne MD [address] [place] [id number] 01/30/2025 8:00 AM CDT - 01/30/2025 8:30 AM CDT Surgery [facility] [place], [place] [address] Radha Etienne MD [address] [place] [address] [phone] COLONOSCOPY (POUCHOSCOPY) Scheduled Procedures Name Priority Associated Diagnoses Date/Ti me COLONOSCOPY Hx of UC (POUCHOSCOPY) 01/30/2025 8:00 AM CDT Health Maintenance Due Date Last Done Comments Hepatitis C 1968 Annual Medicare Wellness Visit 2015 COVID-19 Vaccine ( season) 2024 10/18/2021, 04/06/2021, 08/31/2020, Additional history exists PHQ-2 (Physician [place] [place]) 04/19/2024 04/19/2023 PHQ-2 (Physician [employer] [place]) 07/03/2024 04/19/2023 EGD-Zuñiga's Surveillance 07/09/2024 07/09/2021, DTaP, Tdap and Td Vaccines (4 - Td or Tdap) 01/13/2026 01/14/2016, 01/14/2016, 05/07/2012, Additional history exists Zoster Vaccines Completed 02/05/2019, 03/2019, 11/01/2018, Additional history exists RSV Immunization or 60+ Years Completed 05/11/2023 Pneumococcal Vaccine: 65+ Years Completed 11/29/2023, 11/02/2020, 11/04/2015 Influenza Adult Completed 03/06/2024, 03/2021, 03/03/2020, Additional history exists Meningococcal B Vaccine Aged Out No l onger eligible based on patient's age to complete this topic Meningococcal Vaccine Aged Out No alyssa brisa eligible based on patient's age to complete this topic RSV Immunizations Under 20 Months Aged Out No longer eligible based on patient's age to complete this topic Medical Devices Implanted Type Area Store Standards Associate Device Identifier Shelf Expiration Date Model / Serial / Lot Iol Toric Lens [id number] - [id number] Implanted:Qty: 1 on 01/07/2019 by Vasquez De Jesus MD at [facility] Lens Left: Eye [employer] 12/30/2021 [id number] / [id number] / Description:AcrySol Aspheric UV Absorbing Toric IOL Acrysof Aspheric Uv Absorbing Toric Iol Implanted:Qty: 1 on 02/10/2020 by Vasquez De Jesus MD at [facility] Right: Eye 04/01/2022 [id number] / [id number] / Procedures Procedure Name Priority Date/Time Associated Diagnosis Comments EGD Routine 07/09/2021 6:17 AM HEALTH INFORMATION INTERNSHIP from Last 3 Months or Most Recently Relevant to Health Maintenance Insurance MEDICARE [employer] Advance Directives Documents on File Type Date Recorded Patient Scratcher Tender Expl anation Advance Directives and Living Will 05/08/2024 8:02 AM 08/23/2018 POA FOR HEALTH CARE Advance Directives and Living Will 05/08/2024 8:00 AM 08/23/2018 DECLARATI ON OF LIVING WILL Care Teams Braddisher Relationship Specialty Start Date End Date Ish Gonzalez MD [address] [place] [address] PCP - General INTERNAL MEDICINE 01/02/19
--- OUTSIDE RECORDS SUMMARY | 2024-09-09 13:53 | XMS_ITS | Clinical Summary ---
Author Organization [facility] Address [address] [place] [address] Care Team Providers Care Business Support Name Role Phone Unavailable Primary Care Provider Unavailabl e Source Comments [facility],non-owned Affiliates and Associated Physician Practices is amultiple site organization consisting of ambulatory clinics and hospital sitesin [place], [place], [place] and [place]. This disclosure is being madepursuant to the Care Everywhere program and may not contain all information available regarding this patient. Last updated 18.[facility] Allergies No known active allergies Medications * [...] 10/04/2021 8:03 AM CDT Plan of Treatment Health Maintenance Due Date Last Done Comments COLOGUARD (AGES 45-75) - COLON CA SCREENING 1950 COLON MONITORING 1950 COLONOSCOPY - COLON CA SCREENING 1950 CT COLONOGRAPHY - COLON CA SCREENING 1950 Colorectal Cancer Screening 1950 FIT - COLON CA SCREENING 1950 FLEX SIG - COLON CA SCREENING 1950 LIPID TESTING 1950 MEDICARE AWV 12 MONTHS 1950 HEPATITIS C SCREENING 02/25/1968 DTAP/TDAP/TD VACCINES (1 - Tdap) 1969 PNEUMOCOCCAL VACCINE 50+ (1 of 1 - PCV) 2000 ZOSTER VACCINE (1 of 2) 2000 COVID-19 VACCINE (2 - season) 2024 04/06/2021 INFLUENZA VACCINE (#1) 2024 , 03/03/2020, 05/09/2019, Additional history exists DEPRESSION SCREENING 07/03/2024 Respiratory Syncytial Virus (RSV) Vaccine Pt: or over 60 yrs (1 - 1-dose 75+ series) 2025 HEPATITIS B VACCINE Aged Out No longe r eligible based on patient's age to complete this topic HIB VACCINE Aged Out No longer eligi ble based on patient's age to complete this topic HPV VACCINE Aged Out No longer eligi ble based on patient's age to complete this topic MENINGOCOCCAL (Group B) VACCINE Aged Out No longer eligible based on patient's age to complete this topic MENINGOCOCCAL VACCINE Aged Out No alyssa brisa eligible based on patient's age to complete this topic
--- OUTSIDE RECORDS SUMMARY | 2024-09-09 13:53 | XMS_ITS | Continuity of Care Document ---
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 Role Phone Bonny OD, Marilin Unavailable Unavailable Allergies, Adverse Reactions, Alerts Substance Reaction Status Criticality No Known Allergies Active No Inform ation Medications Medication Instructions Dosage Effective Dates (start - stop) Status Comments Xiidra 5 % eye drops in a dropperette instill 1 drop by ophthalmic route 2 times every day into both eyes approximately 12 hours apart 1.00 drop - Active doxycycline hyclate 100 mg capsule take 1 capsule by oral route 2 times every day 100 MG - Active loteprednol etabonate 0.5 % eye drops,suspension instill 1 drop by ophthalmic route 2 times every day into affected eye(s) 1 drop - Active CENTRUM SILVER (unknown strength) take once daily Not Available - Active telmisartan 40 mg tablet take 1 tablet by oral route every day 40 MG - Active Vitamin D3 10 mcg (400 unit) tablet take once daily - Active Vitamin B-12 1,000 mcg tablet take once daily - Active Pepcid Complete 10 mg-800 mg-165 mg chewable tablet take once daily - Active omeprazole 40 mg capsule,delayed release take 1 capsule by oral route every day before a meal 40 MG - Active Procedures Procedure Date Office/outpatient Visit, Est InflammaDry Post-op Follow-up Visit Office/outpatient Visit, Est Fundus Photography W/ Report No Charge Refraction After Cataract Laser Surgery Office/outpatient Visit, Est No Charge Refraction Fundus Photography W/ Report After Cataract Laser Surgery No Charge Optomap Fundus Photos Oct-- 023 Eye Exam & Treatment Post-op Follow-up Visit After Cataract Laser Surgery No Charge Refraction No Charge Refraction Fundus Photography W/ Report Office/outpatient Visit, Est Fundus Photography W/ Report Eye Exam & Treatment Fundus Photography W/ Report Eye Exam, New Patient Fundus Photography W/ Report Eye Exam & Treatment Refraction Fundus Photography W/ Report Eye Exam & Treatment Eye Exam & Treatment Fundus Photography W/ Report Eye Exam & Treatment Fundus Photography W/ Report Office/outpatient Visit, Est Eye Exam & Treatment Refraction No Charge Glasses Check Eye Exam & Treatment Fundus Photography W/ Report Refraction Eye Exam & Treatment Fundus Photography W/ Report Eye Exam & Treatment Fundus Photography W/ Report Refraction Eye Exam & Treatment Refraction Fundus Photography W/ Report Advance Directives Directive Yes / No Effective Date File Name No Information Encounters Encounter Description Practice Location Reason(s) For Visit Diagnoses Date Provider Providers Copied on Encounter Office/outpa tient Visit, Est [facility], [id number] [place] [address] [address], [place], [place], [address], [place] tel:[phone] SEC John BOLDEN Professional Follow up visit (chief complaint) Dry eye syndrome of bilateral lacrimal glandsChalazi on right lower eyelid October-2 3-202 4 Bonny OD Marilin. [address] [place] [address] [address], [address], [place], [place], [address], [place]. tel:[phone] Referring Provider: Chaitanya Odom, [address], [place], [address] . tel:[phone] [facility], [address] [place] [address] [address], [place], [place], [address], [place] tel:[phone] SEC John BOLDEN Professional YAG PO (chief complaint) Post op visit Aug-2 0-202 4 Huang OD Cristina. [address] [place] [address] Drive, [address], [place], [place], [address], [place]. tel:[phone] Referring Provider: Chaitanya Odom, [address], [place], [address] . tel:[phone] Office/outpa tient Visit, Est [facility], [address] [place] [address] [address], [place], [place], [address], [place] tel:[phone] SEC John BOLDEN Professional WIE (chief complaint) Chalazion of right upper eyelidDry eye Mar-0 8-202 4 Bonny OD Marilin. [address] [place] [address] [address], [address], [place], [place], [address], [place]. tel:[phone] Referring Provider: Chaitanya Odom, [address], [place], [address] . tel:[phone] [facility], [address] [place] [address] [address], [place], [place], [address], [place] tel:[phone] SEC John BOLDEN Professional 3 month followup/YAG capsulotomy (chief complaint) Other secondary cataract, left eyePresence of intraocular lensOther age-related incipient cataract, left eye Mar-0 4 Faustina Tran. [facility] [address], [address], [place], [place], [address], [place]. tel:[phone] Referring Provider: Marc Adams, [facility] [address], [place], [address] . tel:[phone] Office/outpa tient Visit, Est [facility], [address], [place], [place], [address], [place] tel:[phone] SEC John [place] Professional YAG capsulotomy evaluation per Dr. Draper (chief complaint) Anterior basement membrane dystrophy of both eyesOther secondary cataract, bilateral 3 Faustina Tran. [facility] [address], [address], [place], [place], [address], [place]. tel:[phone] Referring Provider: Chaitanya Odom, [address] [facility] [address], [place], [address] . tel:[phone] [facility]Ar[facility] CenterNort[facility]Re[facility], [address], [place], [place], [address], [place] tel:[phone] SEC [place] Professional Complete Exam (chief complaint) Other secondary cataract, left eyeChoroidal nevus of left eyeAnterior basement membrane dystrophy of both eyesVitreous degeneration, bilateral Oct-2 3 Bonny OD Marilin. [facility] linkedFA [address], [address], [place], [place], [address], [place]. tel:[phone] Referring Provider: Chaitanya Odom, [address], [place], [address] . tel:[phone] [facility] AngelesWay[facility] CampusRe[facility], [address], [place], [place], [address], [place] tel:[phone] SEC John [place] Professional Post-Op (chief complaint) Post op visit 2 Leonidas Tavares. [address], [address], [place], [place], [address], [place]. tel:[phone] Referring Provider: Chaitanya Odom, [address], [place], [address] . tel:[phone] [facility], [address], [place], [place], [address], [place] tel:[phone] SEC [place] Professional YAG PC (chief complaint) Other secondary cataract, right eye 2 Leonidas Tavares. [address], [address], [place], [place], [address], [place]. tel:[phone] Referring Provider: Chaitanya Odom, [address], [place], [address] . tel:[phone] Office/outpa tient Visit, [facility], [address] [place] [address] [address], [place], [place], [address], [place] tel:[phone] SEC Leonor Bliss Complete Exam (chief complaint) Choroidal nevus of left eyePresence of intraocular lensEpiretina l membrane (ERM) of right eyeOther secondary cataract, bilateralVitr eous degeneration, bilateral Oct-2 2 Leonidas Tavares. [address], [address], [place], [place], [address], [place]. tel:[phone] Referring Provider: Chaitanya Odom, [address], [place], [address] . tel:[phone] [facility], [address], [place], [place], [address], [place] tel:[phone] SEC Leonor Bliss Complete Exam (chief complaint) Choroidal nevus of left eyePresence of intraocular lensVitreous degeneration, bilateralAnte rior basement membrane dystrophy of both eyesEpiretina l membrane (ERM) of right eyeOther secondary cataract, bilateral Oct-1 1 Leonidas Tavares. [address], [address], [place], [place], [address], [place]. tel:[phone] Referring Provider: Chaitanya Odom, [address], [place], [address] . 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 [address], [address], [place], [place], [address], [place]. tel:[phone] Referring Provider: Chaitanya Odom, [address], [place], [address] . tel:[phone] [facility], [address], [place], [place], [address], [place] tel:[phone] SEC Leonor N [place] Complete Exam (chief complaint) Cortical age-related cataract, bilateralBeni gn neoplasm of choroid, left 7 Gayathri Randall. [address] [facility], [address], [place], [address], [place]. tel:[phone] Referring Provider: Prakash Moy, [address] [facility] [address], [place], [address] . tel:[phone] [facility], [address], [place], [place], [address], [place] tel:[phone] SEC [place] N [place] Blurry vision (chief complaint) No Information 6 Gayathri Randall. [address] [facility], [address], [place], [address], [place]. tel:[phone] Referring Provider: Prakash Moy, [address] [address], [place], [address] . tel:[phone] [facility], [address], [place], [place], [address], [place] tel:[phone] SEC [place] Floaters (chief complaint) No Information 9- 5 Gayathri Randall. [address] [facility], [facility] [address], [place], [place], [address], [place]. tel:[phone] Referring Provider: Prakash Moy, [address] [address], [place], [address] . tel:[phone] [facility], [address], [place], [place], [address], [place] tel:[phone] SEC [place]or N [place] No Information -201 5 Faustina Marc. [address] [facility], [address], [place], [place], [address], [place]. tel:[phone] [facility], [address], [place], [place], [address], [place] tel:[phone] SEC [place] N [place] eyes doing well, without complaint. (chief complaint) No Information 4 Gayathri Randall. [address] [facility], [facility] [address], [place], [place], [address], [place]. tel:[phone] Referring Provider: Prakash Moy, [address] [place] [address], [place], [address] . tel:[phone] Office/outpa tient Visit, Est [facility], [address], [place], [place], [address], [place] tel:[phone] SEC Leonor N [place] Flashes of light (chief complaint) No Information Aug- 2-201 3 Gayathri Randall. [address] [facility], [address], [place], [place], [address], [place]. tel:[phone] [facility], [address], [place], [place], [address], [place] tel:[phone] SEC [place] eyes doing well, without complaint. (chief complaint) No Information 3 Wankamelia Bass. [address], [place], [place], [address], [place]. tel:[phone] Referring Provider: Kali Adams, [address], [place], [address] . tel:[phone] [facility], [address], [place], [place], [address], [place] tel:[phone] SEC Leonor N [place] No Information 0-201 1 Wankamelia Bass. [address], [address], [place], [address], [place]. tel:[phone] [facility], [address], [place], [place], [address], [place] tel:[phone] SEC [place] No Information 6-201 1 Wanwarren Bass. [address], [address], [place], [address], [place]. tel:[phone] Referring Provider: Kali Adams, [address], [place], [address] . tel:[phone] [facility], [address], [place], [place], [address], [place] tel:[phone] SEC Leonor N [place] No Information Nov-2 5-200 9 Wankamelia Bass. [address], [facility] [place], [address], . tel:[phone] Referring Provider: Kali Adams, [address] [place], [address] . tel:[phone] [facility], [address] [place], [place] [address], [place], [address], tel:[phone] SEC Leonor N [place] No Information Nov 2-200 8 Chema Bass. [address], [facility] [place], [address], . tel:[phone] Referring Provider: Kali Adams, [address] [place], [address] . tel:[phone] [facility], [address] [facility], [place], [address], [phone] SEC Leonor N [place] No Information 7-200 7 Chema Bass. [address], [facility] [place], [address], . tel:[phone] Referring Provider: Kali Adams, [address] [place], [address] . tel:[phone] Family History Family Member Type Diagnosis Age At Onset No Information Payers Payer name Insurance type Covered alliance party ID Authoriza tion(s) [place] [id number] [employer] [facility] CI [id number] Social History Type Description Quantity Date Captured Comments Alcohol Use Details Caffeine Use Details soda 16 oz per day Tobacco Use Status Current non-smoker Smoking Status Never smoker Non-Smoking Tobacco Use Details : No Details Available : No Details Available Sex Male Chief Complaint And Reason For Visit From encounter dated '11/23/2023 09:00'. Follow up visit (chief complaint). Description: The 73 year old patient presents for evaluation of Follow up visit in the right eye and left eye. Pt states that starting last week they noticed a new Sty in OD on the bottom lid Nasally. Pt states that it seems to be itchy/dry. Pt states that over the last day or so its been getting really watery and pt states that it seems to have been leaking over the last day. Pt states it was a brown tea color coming out of it. Pt states that it seems to havebeen getting worse. Reason For Referral Reason For Referral No Information Plan Of Treatment Date Type Action Status Patient Education Learning About YAG Lase r Capsulotomy completed Patient Education Learning About Vitreous Detachment completed Patient Education Learning About Vitreous Detachment completed History Of Present Illness Encounter Date Complaint History Of Prese nt Illness Follow up visit The 73 year old patient presents for evaluation of Follow up visit in the right eye and left eye. Pt states that starting last week they noticed a new Sty in OD on the bottom lid Nasally. Pt states that it seems to be itchy/dry. Pt states that over the last day or so its been getting really watery and pt states that it seems to have been leaking over the last day. Pt states it was a brown tea color coming out of it. Pt states that it seems to have been getting worse. YAG PO The 73 year old patient presents for evaluation of YAG PO in the left eye. Pt states that the laser did seem to help OS pt did have some black floaters but they did go away. Pt takes Loteprednol BID OD. WIE The 73 year old patient presents for evaluation of WIE in the right eye. Patient states yesterday while his was instilling an AT she noticed RUL was swollen. Patient states OD felt like it was weeping this am. Patient was using AT because he felt pressure behind his eyes and states he has had sinus problems. Patient had a yag pc OS done here on Monday. Patient has a new cat and the cat has been sleeping with them. 3 month followup/YAG capsulotomy The 73 year old patient presents for evaluation of 3 month followup/YAG capsulotomy in the left eye. Pt has h/o ABMD OD, YAG PC OD, PCO OS, and PC/IOL OU. Pt. states he is having a lot of difficulty due to glare from headlights in OS. Pt. states he has trouble reading or doing very fine things. Pt. states floaters definitely interfere in his visual tasks. YAG capsulotomy eval uation per Dr. Draper The 73 year old patient presents for evaluation of YAG capsulotomy evaluation per Dr. Draper in the left eye. Pt. notices he has trouble seeing to drive at night especially with OS. Pt. has glare symptoms in his OS. Pt. has multiple floaters but does not feel any worse. Complete Exam The 73 year old patient presents for a complete exam ou. Patient is pseudo ou with Toric IOLs ou and yag cap OD. Monitoring CR Nevus OS. Patient denies any changes in vision ou. Patient wears reading glasses. Post-Op The 72 year old patient presents for a 3 week post op YAG PC OD. Patient states vision OD is better. Patient states the glare is better. Patient has a couple of floater still OD. YAG PC The 72 year old patient presents for evaluation of YAG PC in the right eye. Patient states his right eye has some glare issues at night bothers the right eye. Patient states he still sees FLARES out of his left that was not talked about in his last exam. Complete Exam The 72 year old patient presents for evaluation of Complete Exam in the right eye and left eye. Pt states Ou vision is clear and stable at distance and near x 1 yr. Pt states he is still seeing floaters, mostly when driving. Pt denies flashes of light. Pt experiences glaring at night time while driving. Complete Exam The 71 year old male presents for evaluation of Complete Exam in the right eye and left eye. Hx of Toric PC IOL, PCO OS, CR Nevus OS, ABMD OD, PVD OD, and Dermatochalasis OU. Pt had some flashes of light OS back in January and has an increase in floaters OU. Pt was seen and was told he had no retinal problem and then had the same report when he went back for a follow up 6 wks later. Pt notices the floaters worse when driving. 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 Hx Nevus OS, Toric PCIOL OU, Low risk OAG OU. Pt reports cataract surgery OD about 6 weeks ago and would like a second opinion due to vision problems. CE OS was completed about 1 year ago with no problems. Pt reports taking Theratears BID OU. Pt reports seeing a vertical wax paper haze come over his vision OD temporally into central vision, primarily noticed with eye movement. Pt reports mattering OD in the mornings and feeling like his eye lashed are stuck together. Pt feels like his eyelids are blocking his vision occasionally. Symptoms started directly after surgery OD. Pt denies strenuous activities during the episodes of blurred vision. Pt denies flashes of light, dark curtains, or trauma OD. Complete Exam The 66 year old male presents for Complete Exam in the right and left eye. Hx of cataract OU, Nevus OS, vitreous degeneration OD, low risk OAG OU. Pt states his vision OU has been well, no changes. Pt states he comes here for retinal photo and eye health exam but gets his MRX and glases elsewhere. Blurry vision The 65 year old male presents for a Complete exam. Hx Choridal Nevus OS, Vitreous Degeneration OD, and Cataracts OU. Patient c/o decrease in v/a for distance and at near w/ glasses OU. Patient wears trifocals x 3 years. Patient says he thinks he will need new Rx. Patient denies any pain or discomfort at this time OU. Patient not taking any gtts OU. Floaters The 64 year old male presents for Complete Exam. HX Nevus OS, Cat OU, and Vitreous Degen OD. Pt feels vision is stable and floaters have not changed. Functional Status Date Functional Assessmen t No Information Instructions Date Instruction Additional Infor ajay Impression/Plan Impression/Plan Impression/Plan Impression/Plan Impression/Plan Impression/Plan Impression/Plan Impression/Plan Impression/Plan Impression/Plan Impression/Plan Cortical age-related cataract, bilateral - Surgery not indicated now. 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 Related to Cortical age-related cataract, bilateral Impression/Plan - Di scussed cataracts and cataract surgery. Patient elects not to treat at this time. Will continue to monitor for changes and knows to return if vision becomes worse.Return for annual exam and Optomap. Impression/Plan - Gi becca Rx (wans bifocal set for holding reading in lap).Return for annual exam and Optomap.Knows to return if vision changes. Impression/Plan - mo nitor at annual exam. Related to Benign neoplasm of choroid, left BENIGN NEOPLASM CHOR OID - Educational material given Related to BENIGN NEOPLASM CHOROID - Discussed cataract s and cataract surgery. Patient elects not to treat at this time. Will continue to monitor for changes and knows to return if vision becomes worse. Related to SENILE NUCLEAR CATARACT - No treatment is re quired at this time. Will continue to observe condition and or symptoms. Related to BENIGN NEOPLASM CHOROID VITREOUS DEGENERATIO N OD - No treatment is required at this time. Will continue to observe condition and or symptoms. Discussed signs and symptoms of retinal detachment. 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 - Discussed diagnosis in detail with patient. No treatment is required at this time. Will continue to observe condition and or symptoms. Repeat Optomap yearly Related to Benign neoplasm of the choroidal nevus SENILE NUCLEAR CATAR ACT OU Cataract not significantly affecting vision. - Discussed cataracts and cataract surgery.Not significantly affecting vision.Knows to return if vision changes. Educational materials provided:about today's exam. Related to SENILE NUCLEAR CATARACT - Return in 1 year Related to SE NILE NUCLEAR CATARACT VITREOUS DEGENERATIO N, OU With vitreous syneresis - Discussed signs and symptoms of RD. Patient instructed to call if condition gets worse. Related to VITREOUS DEGENERATION - PRN Related to VITRE OUS DEGENERATION choroidal nevus-nc troble with glasses and diff focal lengths for near , with much trial and error got close to same near focal length - +2.00=_1.00@95 od+2,00=-1.00c@75 osadd +2.25 - 1yr Assessments Type Assessment Date assessment Dry eye syndrome of bilateral la crimal glands assessment Chalazion right lower eyelid October Patient Care Teams Name Effective Dates (start - stop) Status Members No Information
--- OUTSIDE RECORDS SUMMARY | 2024-09-09 13:53 | XMS_ITS | Clinical Summary ---
Author Organization [facility] Address [address] [place] [address] Care Team Providers Care Automat Watcher Name Role Phone Ish Gonzalez MD Primary Care Provider [phone] Allergies No known active allergies Medications losartan (COZAAR) 25 mg tablet Take 1 Tablet (25 mg) by mouth 2 times daily. 60 Tablet 3 02/27/2015 Active famotidine-calci um carbonate-magnes ium hydroxide (PEPCID COMPLETE) 10-800-165 mg Tablet, Chewable Take 1 Tablet by mouth daily. Active cyanocobalamin 1,000 mcg Tablet Take 100 mcg by mouth daily. Active cholecalciferol, Vitamin D3, (VITAMIN D3) 25 mcg (1,000 unit) Capsule Take 1,000 Units by mouth daily. Active multivitamins-mi nerals-lutein (CENTRUM SILVER) Tablet Take 1 Tablet by mouth daily. Active RABEprazole (ACIPHEX) 20 mg Tablet, Delayed Release (E.C.) Take 20 mg by mouth daily. Active Active Problems Patient Care Coordination No te Formatting of this note migh t be different from the original. Prev 11/12/13 Problem Noted Date Diagnosed Date Essential hypertension, benign 02/16/2006 Overview (03/12/2010): 03/12/10-stress echo-EF 60%-negative ischemia Unspecified disorder of prostate 08/31/2004 Other and unspecified hyperlipidemia 08/31/2004 Ulcerative colitis, unspecified 08/31/2004 Resolved Problems Problem Noted Date Diagnosed Date Resolved Date Elevated blood pressure read ing without diagnosis of hypertension 11/17/2005 12/11/2007 Hypertrophy of breast 08/31/20042007 Immunizations Immunization Administration Dates Next Due (ADACEL/BOOSTRIX)(10 YR UP) TDAP VACCINE, 0.5ML, IM 01/14/2016,05/07/2012 (PFIZER)(12 YR UP) COVID-19 VACCINE - EMERGENCY USE AUTHORIZATION, MRNA, [id number](PF) 30 MCG/0.3 ML IM SUSP 04/06/2021 (TDVAX)(7 YRS UP) TETANUS AN D DIPHTHERIA TOXOIDS, ADSORBED (2 LF OF TETANUS TOXOID AND 2 LF OF DIPHTHERIA TOXOID), 0.5ML (PF), IM 02/01/2000 Influenza Seasonal Unspecifi ed Formulation IM 04/16/2014,03/18/2013,05/01/2012,2010,04/02/2010,05/03/2008 Influenza Vaccine Split 3+ Yrs IM 06/02/2003 Tetanus Vaccine IM 02/01/2000 Zoster Vaccine Live SQ 01/17/2014 Family History Medical History Relation Name Comments Heart Disease Mother Relation Name Status Comments Mother Social History Tobacco Use Types Packs/Day Years Used Date Smoking Tobacco: Never Smokeless Tobacco: Never Alcohol Use Standard Drinks/Week Comments Yes 3.3 (1 standard drink = 0.6 oz p ure alcohol) Sex and Gender Information Value Date Recorded Sex Assigned at Not on file 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 User may not have seen previous data. Respiratory Rate 14 12/07/2021 10:1 5 AM CDT Oxygen Saturation 99% 12/07/2021 10: 15 AM CDT Inhaled Oxygen Concentration - - Weight 75.3 kg (166 lb) 12/07/2021 9:11 AM CDT Height 167.6 cm (5' 6 ) 12/07/2021 9:11 AM CDT Body Mass Index 26.79 12/07/2021 9:11 AM CDT Plan of Treatment Health Maintenance Due Date Last Done Comments FIT-DNA Q 3 years 1995 FIT/FOBT Q 1 year 1995 Flex Sig/CT Colonography Q 5 years 1995 COLORECTAL SCREENING 11/13/2023 11/12/2013, 09/01/19 09 Colorectal Cancer Screening 11/13/2023 INFLUENZA VACCINE (#1) 2024 , 03/11/2021, 03/03/2020, Additional history exists COVID-19 Vaccine (2023-2 5 season) 2024 10/18/2021, 10/18/2021, 04/06/2021 RSV VACCINE (60+ or ) (1 - 1-dose 75+ series) 2025 DTAP/TDAP/TD VACCINES (3 - T d or Tdap) 01/13/2026 01/14/2016, 01/14/2016, 05/07/2012, Additional history exists ZOSTER VACCINE Completed 02/05/2019, 08/2018, 01/17/2014, Additional history exists PNEUMOCOCCAL VACCINE 50+ YEARS Completed 0 11/02/2020, 05/17/2016, 11/04/2015, Additional history exists Insurance MEDICARE PART A AND B [employer] Care Teams Automat Watcher Relationship Specialty Start Date End Date Ihs Gonzalez MD [address] [place] [phone] PCP - General Internal Medicine 08/02/21
--- OUTSIDE RECORDS SUMMARY | 2024-09-09 13:53 | XMS_ITS | Encounter Summary ---
Author Organization [facility] Address [address] [place] [address] Care Team Providers Care General Merchandise Manager Name Role Phone Ish Gonzalez MD Primary Care Provider [phone] Encounter Details Date Type Department Care Team (Late st Contact Info) Description 08/31/2004 Outpatient Historical [facility] Internal Medicine [address] [phone] Khang Foster MD [address] [place] [phone] Social History Tobacco Use Types Packs/Day Years Used Date Smoking Tobacco: Never Assessed Sex and Gender Information Value Date Recorded Sex Assigned at Not on file 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 Gender Identity Not on file Sexual Orientation Not on file documented as of this encounter Last Filed Vital Signs Vital Sign Reading Time Taken Comments Blood Pressure 160/100 08/31/2004 9:45 AM TUMBLER DRIER OPERATOR Pulse - - Temperature - - Respiratory Rate - - Oxygen Saturation - - Inhaled Oxygen Concentration - - Weight 72.6 kg (160 lb) 08/31/2004 9:45 AM TUMBLER DRIER OPERATOR Height 175.3 cm (5' 9 ) 08/31/2004 9:45 AM TUMBLER DRIER OPERATOR Body Mass Index 23.63 08/31/2004 9:45 AM TUMBLER DRIER OPERATOR documented in this encounter Plan of Treatment Not on file documented as of this encounter Visit Diagnoses Not on filedocumented in this encounter Care Teams General Merchandise Manager Relationship Specialty Start Date End Date Ish Gonzalez MD [address] [place] [address] PCP - General Internal Medicine 08/02/21 documented as of this encounter
--- OUTSIDE RECORDS SUMMARY | 2024-09-09 13:53 | XMS_ITS | Encounter Summary ---
Author Organization [facility] Address [address] [place] [address] Care Team Providers Care Building Principal Name Role Phone Ish Gonzalez MD Primary Care Provider [phone] Encounter Details Date Type Department Care Team (Latest Contact Info) Description 10/04/2008 Outpatient Historical 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
--- OUTSIDE RECORDS SUMMARY | 2024-09-09 13:53 | XMS_ITS | Encounter Summary ---
Author Organization [facility] Address [address] [facility] [address] [facility] [place] [address] Phone Care Team Providers Care Stock Hanger Name Role Phone Ish Gonzalez MD Primary Care Provider [phone] Bob Ji MD Unavailable [phone] CamillerobertEver DO Unavailable [phone] Reason for Visit * Reason Comments Medication Refill Encounter Details Date Type Department Care Team (Late st Contact Info) Description 10/11/2023 Refill [facility] - Internal Medicine - [place] [address] [place] [address] Ish Gonzalez MD [address] [facility] [place] [address] Medication Refill Social History Tobacco Use Types Packs/Day Years Used Date Smoking Tobacco: Never Passive Smoke Exposure: Never Smokeless Tobacco: Never Alcohol Use Standard Drinks/Week Comments Yes 0 (1 standard drink = 0.6 oz pur e alcohol) occasional PHQ-2 Answer Date Recorded Total Score - Questions 1-9 0 12/2021 Education Answer Date Recorded What is the highest level of school you have completed or the highest degree you have received? 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 Requested Prescriptions Pending Prescriptions Disp Refills telmisartan (MICARDIS) 40 MG Tablet [Pharmacy Med Name: TELMISARTAN 40MG TABLETS] 90 Tablet 0 Sig: Take 1 Tablet by mouth daily. ARB Protocol Passed - 10/11/2023 10:20 AM Passed - Serum potassium on record in past 12 months POTASSIUM Date Value Ref Range Status 11/24/2022 4.3 3.5 - 5.1 mmol/L Final Passed - BP on record in the past year Clinician-entered: BP Readings from Last 3 Encounters: 11/24/22 110/68 02/11/22 124/70 01/26/22 134/78 Patient-entered: No data recorded Passed - Visit with relevant provider in past year or upcoming 90 days Recent Visits Date Type Provider Dept 11/24/22 Office Visit Ish Gonzalez MD [facility] [address] [facility] [place] Showing recent visits within past 365 days and meeting all other requirements Future Appointments Date Type Provider Dept 11/29/23 Appointment [facility] [address] Showing future appointments within next 90 days and meeting all other requirements Passed - GFR on record in past 12 months GFR, EST. NONAFRICAN Date Value Ref Range Status 11/24/2022 >60 >=60 Final documented in this encounter Plan of Treatment Upcoming Encounters Date Type Department Care Team (Late st Contact Info) Description 12/04/2024 8:30 AM CDT Office Visit [facility] [place] [address] [place] [address] Ish Gonzalez MD [address] [place] [address] documented as of this encounter Visit Diagnoses Not on filedocumented in this encounter Additional Health Concerns Assessment Noted Time PHQ-9 Depression Total Score: 0 11/03/19 21 9:00 AM CDT documented as of this encounter Care Teams Stock Hanger Relationship Specialty Start Date End Date Ish Gonzalez MD [address] [place] [address] PCP - General Internal Medicine 10/08/15 Bob Ji MD [address] [place] [address] General Surgery 02/09/16 Ever Matias DO [address] [place] [address] Gastroenterology 02/10/16 documented as of this encounter
--- OUTSIDE RECORDS SUMMARY | 2024-09-09 13:53 | XMS_ITS | Encounter Summary ---
Author Organization [facility] Address [facility] [place] [address] Care Team Providers Care Rehabilitation Inspector Name Role Phone Ish Gonzalez MD Primary Care Provider [phone] Encounter Details Date Type Department Care Team (Late st Contact Info) Description 02/04/2020 Prep for Procedure [facility] Day [facility] [address] [place], [place] [id number] Vasquez De Jesus MD [address] [facility] [address] [place] [phone] Social History Tobacco Use Types Packs/Day Years Used Date Smoking Tobacco: Former Smokeless Tobacco: Never Alcohol Use Standard Drinks/Week Comments Yes 0 (1 standard drink = 0.6 oz pur e alcohol) weekly Sex and Gender Information Value Date Recorded Sex Assigned at Not on file Legal Sex Male 3:38 PM CDT Gender Identity Male 07/05/2021 5:23 PM RESUME SPECIALIST Sexual Orientation Straight 07/05/2021 5: 23 PM RESUME SPECIALIST COVID-19 Exposure Response Date Recorded In the last month, have you been in contact with someone who was confirmed or suspected to have Coronavirus / COVID-19? No / Unsure 02/07/2020 10:01 AM CDT documented as of this encounter Plan of Treatment Upcoming Encounters Date Type Department Care Team (Latest Contact Info) Description 01/30/2025 8:00 AM CDT Hospital Encounter [facility] [place] [address] Radha Etienne MD [address] [facility] [address] [place] [address] 01/30/2025 8:00 AM CDT - 01/30/2025 8:30 AM CDT Surgery [facility] [place] [address] Radha Etienne MD [address] [place] [address] [place] [address] COLONOSCOPY (POUCHOSCOPY) Scheduled Procedures Name Priority Associated Diagnoses Date/Ti me COLONOSCOPY Hx of UC (POUCHOSCOPY) 01/30/2025 8:00 AM CDT documented as of this encounter Results * PRE-SURGICAL/PRE-PROCEDURE CORONAVIRUS (COVID 19) (02/07/2020 10:23 AM CDT) CORONAVIRUS SARS COV 2 PCR (RESP) NOT DETECTED NOT DETECTED 02/08/2020 7:58 PM CDT [facility] Comment: A Not Detected (negative) test result for this test means that SARS- CoV-2 RNA was not present in the specimen above the limit of detection. A negative result does not rule out the possibility of COVID-19 and should not be used as the sole basis for treatment or patient management decisions. If COVID-19 is still suspected, based on exposure history together with other clinical findings, re-testing should be considered in consultation with public health authorities. Laboratory test results should always be considered in the context of clinical observations and epidemiological data in making a final diagnosis and patient management decisions. Please review the Fact Sheets and FDA authorized labeling available for health care providers and patients using the following websites: [email or web address]-[email or web address]/[email or web address]/fact-sheet2 [email or web address]/home/Covid-[email or web address]/Patients/NAAT/ fact-sheet2 This test has been authorized by the FDA under an Emergency Use Authorization (EUA) for use by authorized laboratories. Due to the current public health emergency, [facility] is receiving a high volume of samples from a wide variety of swabs and media for COVID-19 testing. In order to serve patients during this public health crisis, samples from appropriate clinical sources are being tested. Negative test results derived from specimens received in non-commercially manufactured viral collection and transport media, or in media and sample collection kits not yet authorized by FDA for COVID-19 testing should be cautiously evaluated and the patient potentially subjected to extra precautions such as additional clinical monitoring, including collection of an additional specimen. Methodology: Nucleic Acid Amplification Test (NAAT) includes PCR or TMA Additional information about COVID-19 can be found at the [facility] website: www.[employer]/Covid19. Test performed at [facility] [address] [place] [address] Director: SHWETA DA SILVA DO,MPH NASOPHARYNGEAL SWAB / Unknown 02/07/2020 10:23 AM CDT us Vasquez De Jesus MD MICROBIOLOGY - GENERAL ORDERAB LES Final Result [facility] [id number] [id number] documented in this encounter Visit Diagnoses Diagnosis Pre-op testing- Primary Preoperative examination, unspecified documented in this encounter Additional Health Concerns Infection Onset Date Last Indicated Resolved Time COVID-19 Rule Out 02/07/2020 02/07/2020 02/08/2020 7:58 PM CDT documented as of this encounter Care Teams Rehabilitation Inspector Relationship Specialty Start Date End Date Ish Gonzalez MD [address] [place] [address] PCP - General INTERNAL MEDICINE 01/02/19 documented as of this encounter
[2024-09-10 12:34] LABS: Rubeola Measles IgG >300.00 AU/mL
== END 2024-09-09 11:48 | disposition home or self-care (01) ==
PROVIDERS: PCP Internal Medicine; Visit Provider Internal Medicine
DX: Z01.84 Encounter for antibody response examination (principal)
CPT/HCPCS: 36415; 86765

== ENCOUNTER 2025-04-03 07:10 | Outpatient (CLI) | payer MEDICARE, SELFPAY ==
[2025-04-03 08:28] LABS: Alanine Aminotransferase 30 U/L (6-50); Albumin Level 4.3 g/dL (3.5-5.1); Alkaline Phosphatase 56 U/L (38-126); Anion Gap 7 mmol/L (4-12); Aspartate Amino Transferase 33 U/L (17-59); Bilirubin,Total 1.3 mg/dL (0.2-1.3); Blood Urea Nitrogen 18 mg/dL (9-20); Calcium 9.2 mg/dL (8.4-10.2); Carbon Dioxide 26 mmol/L (22-30); Chloride 102 mmol/L (98-107); Estimated Glomerular Filt Rate > 60; Glucose 86 mg/dL (65-110); Potassium 4.3 mmol/L (3.4-5.0); Sodium 135 mmol/L (137-145); Total Protein 8.2 g/dL (6.3-8.2)
== END 2025-04-03 07:11 | disposition home or self-care (01) ==
PROVIDERS: PCP Internal Medicine; Visit Provider Internal Medicine
DX: R77.8 Other specified abnormalities of plasma proteins (principal)
CPT/HCPCS: 36415; 80053